=== PATIENT | female | born 1990 | race Caucasian/White ===

== ENCOUNTER 2016-08-17 10:42 | Emergency (ER) | payer OTHER ==
[~2016-08-17 10:42] MED LIST: ALEVE220 MG PO; BACDS PO; DSS PO; FLONASE NAS; FLUCON1 PO; GOODY'S HEADAC1 EACH PO; IMITREX100 MG PO; KDUR20 PO; KLOR-CON; KLOR-CON 1010 MEQ PO; L20 PO; LEVAQUIN; LIPITOR20 PO; LIPITOR40 PO; LOP25 PO; LORTAB PO; MAXIMUM D3 PO; NOVLOGPUMP SC; NOVOPEN SC; P10 PO; PENICILLN VK500 MG PO; PEPPERMINT OIL PO; ZESTRIL10 MG PO
[2016-08-17 10:48] LABS: BASOPHILS 0.2 %; BASOPHILS ABSOLUTE 0.02 10/3/uL (0.0-0.16); EOSINOPHILS 0.2 %; EOSINOPHILS ABSOLUTE 0.02 10/3/uL (0.0-0.53); HEMOGLOBIN 15.4 g/dL (12.0-16.0); IMMATURE GRANULOCYTES 0.4 %; IMMATURE GRANULOCYTES ABSOLUTE 0.05 10/3/uL (0.0-0.11); LYMPHOCYTES 11.2 %; LYMPHOCYTES ABSOLUTE 1.48 10/3/uL (0.67-4.30); MEAN CORPUS HGB CONC 36.1 g/dL (32.0-36.0); MEAN CORPUSCULAR VOLUME 88.6 fL (80-100); MEAN PLATELET VOLUME 10.1 fL (9.2-13.0); MONOCYTES 11.1 %; MONOCYTES ABSOLUTE 1.46 10/3/uL (0.21-1.20); NEUTROPHILS 76.9 %; NEUTROPHILS ABSOLUTE 10.15 10/3/uL (2.02-8.40); RBC DISTRIBUTION WIDTH 12.9 % (12.0-16.0); RED CELL COUNT 4.82 10/6/uL (4.0-5.6)
[2016-08-17 10:49] LABS: ER CBC TAT 0 Hrs 07 Mins; HEMATOCRIT 42.7 % (36.0-48.0); MANUAL DIFF NO %; PLATELET COUNT 307 10/3/uL (150-400); WHITE BLOOD CELLS 13.2 10/3/uL (4.5-10.5)
[2016-08-17 11:03] LABS: CHLORIDE, SERUM 105 MMOL/L (96-112); CREATININE 0.86 MG/DL (0.55-1.02); GFR AFRICAN AMERICAN 109 ML/MIN (>=60); GFR NON AFRICAN AMERICAN 94 ML/MIN (>=60); SGOT(AST) 9 U/L (5-40); SGPT(ALT) 26 U/L (5-65); SODIUM, SERUM 139 MMOL/L (135-148); TOTAL BILIRUBIN 0.5 MG/DL (0-1.2)
[2016-08-17 11:04] LABS: ALKALINE PHOSPHATASE 98 U/L (45-117); BUN (BLOOD UREA NITROGEN) 28 MG/DL (6-23); CALCIUM, SERUM 9.4 MG/DL (8.5-10.4); CO2 (CARBON DIOXIDE) 19 MMOL/L (24-34); GLOBULIN 4.2 G/DL (2.5-4.1); GLUCOSE, SERUM 221 MG/DL (60-99); TOTAL PROTEIN 8.2 G/DL (6.0-8.5)
[2016-08-17 11:26] LABS: ASCORBIC ACID (UR NOT ORDER) NEG (NEG); BILIRUBIN, URINE NEGATIVE (NEG); KETONE, URINE 80 MG/DL (NEG); LEUKOCYTE ESTERASE(NOT OR NEG (NEG); NITRITE (URINE) NEG (NEG); WBC (NOT ORDERED) (RFLEX) 2 (0-5)
[2016-08-17 11:36] LABS: ALLENS TEST Pos; BE (BASE EXCESS) -8.2 MEQ/L (0 +/- 2.5); CARBOXYHEMOGLOBIN 1.3 % (0-3); HCO3 (ACTUAL BICARBONATE) 15.9 MEQ/L (23-27); HEMOBLOGIN CONTENT 15.2 G/DL (12-16); INSTRUMENT SERIAL # 8087; METHEMOGLOBIN 0.2 % (0-3); O2 CONTENT 20.7 VOL% (18-24); OPERATOR ID 35188; PCO2 (CO2 TENSION) 29 MMHG (35-45); PO2 (O2 TENSION) 101 MMHG (79-93); SAMPLE Arterial; pH 7.35 (7.37-7.43)
== END 2016-08-17 14:56 | disposition home or self-care (01) ==
LOC: ER 10:42
PROVIDERS: Emergency Medicine
DX: E10.10 Type 1 diabetes mellitus with ketoacidosis without coma (principal); E78.5 Hyperlipidemia, unspecified; K21.9 Gastro-esophageal reflux disease without esophagitis; Z88.8 Allergy status to other drugs, medicaments and biological substances; Z88.1 Allergy status to other antibiotic agents; Z79.899 Other long term (current) drug therapy; Z79.4 Long term (current) use of insulin
CPT/HCPCS: 36600; 80053; 81001; 82805; 82962; 83690; 84703; 85025; 96374; 99285; J2405